=== PATIENT | female | born 1990 | race Caucasian/White ===

== ENCOUNTER 2020-12-12 02:26 | Emergency (ER) | payer BC, SELFPAY ==
--- NOTE | ~2020-12-12 | CT_ITS ---
EXAMINATION: CT abdomen pelvis wo con DATE: 12/12/2020 03:16 INDICATION: Right lower quadrant pain TECHNIQUE: Computed tomography (CT) of the abdomen and pelvis was performed without intravenous contr ast. The dose-length product (DLP) was 337.66 mGy-cm. Automated exposure control and iterative recons truction technique were employed. COMPARISON: None FINDINGS: The lung bases are clear. The heart size is normal. The liver, spleen, pancreas, gallbladde r, and adrenal glands are normal. The kidneys are unremarkable. No pathologically enlarged abdominal or pelvic lymph nodes are identified. There is no free intraperitoneal gas or evidence of bowel obstr uction. The appendix is normal. An IUD is present in expected position. IMPRESSION: 1. No CT correlate for the patient's symptoms. Reviewed, dictated and finalized at location A. PMENT SCHEDULER
[2020-12-12 02:28] VITALS: BP 131/70; PULSE 97; RESP 14; TEMP 36.1; O2SAT 100
--- NOTE | 2020-12-12 02:43 | ED.ABDPAIN ---
HPI - Abdominal Pain General Chief Complaint: Abdominal Pain Stated Complaint: abd pain Time Seen by Provider: 12/12/20 02:31 History of Present Illness HPI narrative: Severe lower abdominal pain for the past hour. Sharp. No radiation. She has had ovarian cysts, but says this feels different. No nausea, vomiting, diarrhea, constipation, fever, dysuria, hematuria. Related Data Allergies Allergy/AdvReac Type Severity Reaction Status Date / Time Contrast Media Allergy Intermediate Nausea and Uncoded 12/12/20 03:00 Vomiting BABY WIPES AdvReac Intermediate Rash Uncoded 12/12/20 03:00 Review of Systems Review of Systems: All systems reviewed & are unremarkable except as noted in HPI and below Constitutional: Constitutional: Denies fever(s) Cardiovascular: Cardiovascular: Denies chest pain Respiratory: Respiratory: Denies dyspnea Gastrointestinal: Gastrointestinal: Reports abdominal pain, Denies diarrhea, Denies nausea and Denies vomiting Genitourinary: Genitourinary: Denies hematuria and Denies dysuria Neurologic: Denies dizziness and Denies weakness [facility] Past Medical History Medical History (Updated 12/13/20 @ 03:40 by Paul Mujica MD) Ovarian cyst Family History Family History Father Diabetes mellitus Family history of schizophrenia Depression Cerebrovascular accident Family history of kidney disease Grandparent Family history of lung cancer Social History Social History Smoking status: Former smoker Second hand tobacco smoke exposure: No Smoking end date: 11/29/17 Alcohol intake: current Exam Const: General: healthy appearing, no acute distress and alert Orientation/consciousness: patient oriented x3 HENMT: Head: normal to inspection Resp: Effort & Inspection: normal respiratory effort Auscultation: clear to auscultation bilaterally, no rales, no rhonchi and no wheezes Cardio: Jugular venous distension: no JVD Rate: regular rate Rhythm: regular rhythm Heart sounds: no murmurs GI: Inspection: non-distended GI Palp: Yes Soft to palpation and Yes Tenderness to palpation present (GI) (suprapubic) Skin: General skin exam: normal color Neuro: General: patient oriented x3, moves all extremities and CN's II-XI intact bilaterally Speech: normal speech Gait exam (Neuro): Normal gait present Extrem: General: no edema Psych: Appearance: well kempt Affect: normal affect Course Vital Signs Vital signs: Vital Signs Temperature 36.1 C L 12/12/20 02:28 Pulse Rate 97 12/12/20 02:28 Respiratory Rate 14 12/12/20 02:28 Blood Pressure 131/70 12/12/20 02:28 Pulse Oximetry 100 12/12/20 02:28 Temperature 36.9 C 12/12/20 04:39 Pulse Rate 73 12/12/20 04:39 Respiratory Rate 16 12/12/20 04:39 Blood Pressure 118/89 12/12/20 04:39 Pulse Oximetry 100 12/12/20 04:39 MDM - Abdominal Pain Differential Diagnosis Differential diagnosis: Likely acute appendicitis, calculus of kidney, endometriosis, pancreatitis and other (ovarian cyst, UTI) Medical Records Attestation: I reviewed the patient's medical records. Lab Data Attestation: I reviewed the patient's lab results. Result diagrams: 12/12/20 02:51 12/12/20 02:51 Labs: Lab Results 12/12/20 12/12/20 12/12/20 Range/Units 02:51 02:51 02:51 WBC 11.7 H (4.5-10.0) K/mm3 RBC 4.52 (4.2-5.4) M/mm3 Hgb 14.5 (12.0-15.0) g/dL Hct 43.1 (37.0-47.0) % MCV 95.4 (80-100) fl MCH 32.1 (26-34) pg MCHC 33.6 (32-36) g/dl RDW 11.9 (11.5-14.5) % Plt Count 351 (150-375) k/mm3 MPV 9.4 (7.4-10.4) fl Immature Gran % (Auto) 0.4 (0-0.5) % Neut % (Auto) 61.5 (45.5-73.1) % Lymph % (Auto) 27.0 (18.3-44.2) % [place] % (Auto) 6.8 (2.6-8.5) % Eos % (Auto) 3.4 (0-4.4) % Baso % (Auto) 0.9 (0.2-1.2) % L
[2020-12-12] MEDS: fentaNYL CITRATE INJ (*CRX) 100 MCG/2 ML VIAL 50 MCG IV PUSH (02:58)
[2020-12-12 03:00] LABS: Basophils Absolute Auto 0.1 K/mm3 (0.0-0.1); Basophils Percent Auto 0.9 % (0.2-1.2); Eosinophils Absolute Auto 0.4 K/mm3 (0-0.3); Eosinophils Percent Auto 3.4 % (0-4.4); Hematocrit 43.1 % (37.0-47.0); Hemoglobin 14.5 g/dL (12.0-15.0); Immature Granulocyte Absolute 0.05 K/mm3 (0.00-0.031); Immature Granulocyte Percent A 0.4 % (0-0.5); Lymphocytes Absolute Auto 3.16 K/mm3 (0.9-3.2); Mean Corpuscular HGB Conc 33.6 g/dl (32-36); Mean Corpuscular Hemoglobin 32.1 pg (26-34); Mean Corpuscular Volume 95.4 fl (80-100); Mean Platelet Volume 9.4 fl (7.4-10.4); Monocytes Absolute Auto 0.8 K/mm3 (0.1-0.6); Monocytes Percent Auto 6.8 % (2.6-8.5); Neutrophils Absolute Auto 7.2 K/mm3 (1.3-6.7); Neutrophils Percent Auto 61.5 % (45.5-73.1); Platelet Count Result 351 k/mm3 (150-375); Red Blood Count 4.52 M/mm3 (4.2-5.4); Red Cell Distribution Width 11.9 % (11.5-14.5); White Blood Count 11.7 K/mm3 (4.5-10.0)
[2020-12-12 03:09] LABS: Add Urine Microscopic? YES; Amorphous Sediment Urine Few; Appearance Urine Cloudy (Clear); Bacteria Urine 3+ /hpf; Bilirubin Urine Negative (Negative); Blood Urine 1+ (Negative); Color Urine Yellow (Yellow); Glucose Urine UA Negative (Negative); Ketones Urine Negative (Negative); Leukocyte Esterase Ur 1+ LEU/UL (Negative); Mucus Urine Few /lpf; Nitrate Urine Positive (Negative); Protein Urine Negative (Negative); Specific Grav Ur 1.017 (1.001-1.035); Squamous Epithelial Cell Urine Moderate /hpf (Few); Urobilinogen Urine Negative mg/dL (<2.0)
[2020-12-12 03:19] LABS: Alanine Aminotransferase 19 U/L (4-35); Albumin Level 4.3 g/dL (3.5-5.1); Alkaline Phosphatase 70 U/L (38-126); Anion Gap 8 mmol/L (8-16); Aspartate Amino Transferase 25 U/L (14-36); Bilirubin,Total 0.4 mg/dL (0.2-1.3); Blood Urea Nitrogen 10 mg/dL (7-17); Calcium 8.9 mg/dL (8.4-10.2); Carbon Dioxide 28 mmol/L (22-30); Chloride 100 mmol/L (98-107); Estimated CRCL calculation 107 ml/min; Estimated Glomerular Filt Rate > 60; Glucose 101 mg/dL (65-105); Lipase 58 U/L (23-300); Potassium 3.8 mmol/L (3.4-5.0); Sodium 136 mmol/L (137-145)
[2020-12-12] MEDS: PHENAZOPYRIDINE HCL 100 MG TABLET 200 MG PO (04:00)
[2020-12-12] MEDS: KETOROLAC 30 MG/ML VIAL (*BKC) IV PUSH (04:01)
[2020-12-12 04:39] VITALS: BP 118/89; PULSE 73; RESP 16; TEMP 36.9; O2SAT 100
[2020-12-12] MEDS: ONDANSETRON INJ 4 MG/2 ML VIAL IV PUSH (04:39)
== END 2020-12-12 04:40 | disposition home or self-care (01) ==
PROVIDERS: Emergency Provider Emergency Medicine; PCP Family Medicine
DX: N39.0 Urinary tract infection, site not specified (principal); Z87.891 Personal history of nicotine dependence
CPT/HCPCS: 36415; 74176; 80053; 81001; 81025; 83690; 85025; 96365; 96375; 99284; A9270; J0696; J1885; J2405; J3010

== ENCOUNTER 2020-12-14 11:37 | Outpatient (CLI) | payer BC, SELFPAY ==
[2020-12-14 12:02] LABS: Hemoglobin 14.5 g/dL (12.0-15.0); Mean Corpuscular Hemoglobin 31.9 pg (26-34); Mean Corpuscular Volume 96.9 fl (80-100); Mean Platelet Volume 9.5 fl (7.4-10.4); Platelet Count Result 271 k/mm3 (150-375); Red Blood Count 4.54 M/mm3 (4.2-5.4); Red Cell Distribution Width 11.9 % (11.5-14.5); White Blood Count 10.7 K/mm3 (4.5-10.0)
== END 2020-12-14 11:38 | disposition home or self-care (01) ==
LOC: ANHLAB 11:38
PROVIDERS: PCP Family Medicine; Visit Provider Physician Assistant
DX: D72.829 Elevated white blood cell count, unspecified (principal)
CPT/HCPCS: 36415; 85027

== ENCOUNTER 2020-12-16 14:20 | Outpatient (CLI) | payer BC, SELFPAY ==
--- NOTE | ~2020-12-16 | XR_ITS ---
EXAMINATION: XR chest 2V DATE: 12/16/2020 14:47 INDICATION: Unspecified acute lower respiratory infection. TECHNIQUE: Frontal and lateral views of the chest were obtained. COMPARISON: CT abdomen and pelvis 12/12/2020 FINDINGS: The chest demonstrates clear lungs without pneumonia, pleural effusion, or pneumothorax. Th e heart size is normal. IMPRESSION: 1. No acute cardiopulmonary disease. Reviewed, dictated and finalized at location B. UP WORKER
== END 2020-12-16 14:21 ==
PROVIDERS: PCP Family Medicine; Visit Provider Physician Assistant
DX: J22 Unspecified acute lower respiratory infection (principal)
CPT/HCPCS: 71046

== ENCOUNTER 2020-12-18 09:10 | Outpatient (NON) | payer BC, SELFPAY ==
[2020-12-18 21:58] LABS: SARS-CoV-2 RNA PCR Negative
== END 2020-12-18 09:11 ==
LOC: ANHCOVIDDT 09:12
PROVIDERS: Family Provider Family Medicine; PCP Family Medicine; Visit Provider Physician Assistant
DX: Z20.822 Contact with and (suspected) exposure to COVID-19 (principal); R05 Cough
CPT/HCPCS: C9803; U0003; U0005

== ENCOUNTER 2021-05-12 02:02 | Emergency (ER) | payer BC, SELFPAY ==
--- NOTE | ~2021-05-12 | CT_ITS ---
EXAMINATION: CT abdomen pelvis wo con DATE: 05/12/2021 04:24 INDICATION: Generalized abdominal pain TECHNIQUE: Computed tomography (CT) of the abdomen and pelvis was performed with 100 cc Omnipaque 350 intravenous contrast. The dose-length product was 467.21 mGy-cm. Automated exposure control and iter ative reconstruction technique were employed. COMPARISON: 12/12/2020 FINDINGS: Lung bases are unremarkable. Heart size normal. No significant pleural or pericardial effus ion. There is an IUD in the uterus. The liver, spleen, pancreas, adrenal glands and kidneys are unremarkable. IUD present in expected pos ition. No renal/ureteral stones or hydronephrosis. Bladder is unremarkable. Nonobstructive bowel gas pattern . No free air or free fluid. IMPRESSION: 1. No acute abdominal abnormality. Reviewed, dictated and finalized at location A.
[2021-05-12 02:10] VITALS: BP 124/77; PULSE 104; RESP 18; TEMP 36.5; O2SAT 99
--- NOTE | 2021-05-12 02:23 | PC.NURSE ---
Pt presents to ED with complaints of wounds to ankles after being bitten by an unknown insect 3 days ago. Pt states wounds are draining a clear fluid and is causing swelling to her ankles. States she was prescribed prednisone and augmentin by pcp today but was not seen in the office. Pt state she took one dose of meds and shortly after she became nauseous. Pt denies emesis, fever, chills, chest pain and sob. Pt resting on cart alert and oriented x4 and in no obvious distress with stable vitals. Pt advised to press call button for assistance. Spouse at bedside.
--- NOTE | 2021-05-12 03:04 | ED.GENADULT ---
HPI - General Adult General Chief complaint: Unspecified Stated complaint: feels like stomach is burning Time Seen by Provider: 05/12/21 02:47 History of Present Illness HPI narrative: A 30-year-old female presents to emergency department with chief complaint of epigastric discomfort. Patient states that she was started on steroids and antibiotics by her primary care physician for some infected bug bites. Patient states that after she took the medication she started having burning in her epigastric region that is moved down into her stomach. Patient states that she has had no fevers no chills reports that her wound started itching as well afterwards. Related Data Allergies Allergy/AdvReac Type Severity Reaction Status Date / Time Contrast Media Allergy Intermediate Nausea and Uncoded 12/16/20 13:48 Vomiting BABY WIPES AdvReac Intermediate Rash Uncoded 12/16/20 13:48 Review of Systems Review of Systems: Narrative: A 10 system review of systems was completed on the patient and is negative except for what is stated in the HPI. Nursing and ancillary documentation was reviewed. PMFSH Past Medical History Medical History Ovarian cyst Family History Family History Father Diabetes mellitus Family history of schizophrenia Depression Cerebrovascular accident Family history of kidney disease Grandparent Family history of lung cancer Social History Social History Smoking status: Former smoker Second hand tobacco smoke exposure: No Smoking end date: 11/29/17 Alcohol intake: current Exam Narrative: Exam Narrative: GENERAL: Well-appearing, well-nourished, and in no acute distress. HEAD: Normocephalic, atraumatic. EYES: PERRLA and EOMI. ENT: Nares clear, no rhinorrhea or epistaxis. Mucous membranes moist. NECK: Supple. CHEST: Clear to auscultation. No respiratory distress. HEART: Regular rate and rhythm. No murmur heard. Normal peripheral pulses. ABDOMEN: Soft, mild tenderness to palpation in the epigastric region, nondistended, normal active bowel sounds. EXTREMITIES: Normal range of motion. No edema. Several small bug bites on the trunk and on the lower extremities SKIN: Warm, dry, no rash. NEURO: No focal deficits. Alert and oriented x3. PSYCH: Normal mood and affect. Course Vital Signs Vital signs: Vital Signs Temperature 36.5 C 05/12/21 02:10 Pulse Rate 104 H 05/12/21 02:10 Respiratory Rate 18 05/12/21 02:10 Blood Pressure 124/77 05/12/21 02:10 Pulse Oximetry 99 05/12/21 02:10 Temperature 36.5 C 05/12/21 04:43 Pulse Rate 85 05/12/21 04:43 Respiratory Rate 18 05/12/21 04:43 Blood Pressure 119/78 05/12/21 04:43 Pulse Oximetry 98 05/12/21 04:43 Medical Decision Making Vital Signs Vital Signs: Vital Signs Temperature 36.5 C 05/12/21 02:10 Pulse Rate 104 H 05/12/21 02:10 Respiratory Rate 18 05/12/21 02:10 Blood Pressure 124/77 05/12/21 02:10 Pulse Oximetry 99 05/12/21 02:10 Temperature 36.5 C 05/12/21 04:43 Pulse Rate 85 05/12/21 04:43 Respiratory Rate 18 05/12/21 04:43 Blood Pressure 119/78 05/12/21 04:43 Pulse Oximetry 98 05/12/21 04:43 Lab Data Result diagrams: 05/12/21 03:14 05/12/21 03:14 Labs: Lab Results 05/12/21 05/12/21 05/12/21 Range/Units 03:14 03:14 03:44 WBC 8.1 (4.5-10.0) K/mm3 RBC 4.38 (4.2-5.4) M/mm3 Hgb 13.8 (12.0-15.0) g/dL Hct 42.5 (37.0-47.0) % MCV 97.0 (80-100) fl MCH 31.5 (26-34) pg MCHC 32.5 (32-36) g/dl RDW 11.9 (11.5-14.5) % Plt Count 315 (150-375) k/mm3 MPV 9.6 (7.4-10.4) fl Immature Gran % (Auto) 0.4 (0-0.5) % Neut % (Auto) 83.0 H (45.5-73.1) % Lymph % (Auto) 12.2 L (18.3-44.2) % [place] % (Auto) 3.4
[2021-05-12] MEDS: BELLADONNA ALK/PHENOB ELIX 10 ML, MAG HYDROX/ALUMINUM HYD/SIMETH 30 ML, LIDOCAINE HCL 2... PO (03:06)
[2021-05-12 03:18] LABS: Basophils Percent Auto 0.5 % (0.2-1.2); Eosinophils Percent Auto 0.5 % (0-4.4); Hematocrit 42.5 % (37.0-47.0); Hemoglobin 13.8 g/dL (12.0-15.0); Immature Granulocyte Absolute 0.03 K/mm3 (0.00-0.031); Immature Granulocyte Percent A 0.4 % (0-0.5); Lymphocytes Absolute Auto 0.98 K/mm3 (0.9-3.2); Lymphocytes Percent Auto 12.2 % (18.3-44.2); Mean Corpuscular HGB Conc 32.5 g/dl (32-36); Mean Corpuscular Hemoglobin 31.5 pg (26-34); Mean Platelet Volume 9.6 fl (7.4-10.4); Monocytes Absolute Auto 0.3 K/mm3 (0.1-0.6); Monocytes Percent Auto 3.4 % (2.6-8.5); Neutrophils Absolute Auto 6.7 K/mm3 (1.3-6.7); Platelet Count Result 315 k/mm3 (150-375); Red Blood Count 4.38 M/mm3 (4.2-5.4); Red Cell Distribution Width 11.9 % (11.5-14.5); White Blood Count 8.1 K/mm3 (4.5-10.0)
--- NOTE | 2021-05-12 03:27 | PC.NURSE ---
Pt ambulated in [place] to restroom. Pt states she was beginning to feel better but her stomach is starting to burn again. Will notify EDMD.
[2021-05-12 03:28] LABS: Alanine Aminotransferase 61 U/L (4-35); Albumin Level 4.5 g/dL (3.5-5.1); Alkaline Phosphatase 77 U/L (38-126); Anion Gap 11 mmol/L (8-16); Aspartate Amino Transferase 38 U/L (14-36); Bilirubin,Total 0.4 mg/dL (0.2-1.3); Blood Urea Nitrogen 12 mg/dL (7-17); Calcium 9.5 mg/dL (8.4-10.2); Carbon Dioxide 24 mmol/L (22-30); Chloride 106 mmol/L (98-107); Estimated Glomerular Filt Rate > 60; Glucose 114 mg/dL (65-105); Lipase 46 U/L (23-300); Potassium 4.6 mmol/L (3.4-5.0); Sodium 141 mmol/L (137-145)
[2021-05-12 03:54] LABS: Add Urine Microscopic? YES; Appearance Urine Cloudy (Clear); Bacteria Urine Trace /hpf; Bilirubin Urine Negative (Negative); Blood Urine 1+ (Negative); Color Urine Yellow (Yellow); Glucose Urine UA Negative (Negative); Ketones Urine Negative (Negative); Leukocyte Esterase Ur 3+ LEU/UL (Negative); Mucus Urine Rare /lpf; Nitrate Urine Negative (Negative); Protein Urine Negative (Negative); Specific Grav Ur 1.013 (1.001-1.035); Squamous Epithelial Cell Urine Many /hpf (Few); Urobilinogen Urine Negative mg/dL (<2.0)
[2021-05-12] MEDS: FAMOTIDINE 20 MG/2 ML VIAL IV PUSH (04:07)
[2021-05-12] MEDS: PANTOPRAZOLE SODIUM IV 40 MG VIAL IV PUSH (04:07)
--- NOTE | 2021-05-12 04:16 | PC.NURSE ---
Pt to ct via cart.
--- NOTE | 2021-05-12 04:24 | PC.NURSE ---
pt returned from ct.
--- NOTE | 2021-05-12 04:26 | PC.NURSE ---
Pharmacy called again in regards to missing med. Message left.
--- NOTE | 2021-05-12 04:31 | PC.NURSE ---
Med received from pharmacy.
[2021-05-12] MEDS: SUCRALFATE 1 GM TABLET PO (04:32)
[2021-05-12 04:43] VITALS: BP 119/78; PULSE 85; RESP 18; TEMP 36.5; O2SAT 98
--- NOTE | 2021-05-12 04:46 | PC.NURSE ---
Pt states she feels much better since medication administration and also states that burning sensation in abdomen has pretty much subsided . Family member remains at bedside and pt remains alert and oriented x4 and in no obvious distress. Call button and personal items within reach and pt advised to press call button for assistance.
--- NOTE | 2021-05-12 04:52 | PC.NURSE ---
EDMD at bedside to update pt on poc. All questions and concerns addressed.
== END 2021-05-12 05:10 | disposition home or self-care (01) ==
PROVIDERS: Emergency Provider Emergency Medicine; PCP Family Medicine
DX: K29.00 Acute gastritis without bleeding (principal); Z87.891 Personal history of nicotine dependence
CPT/HCPCS: 36415; 74176; 80053; 81001; 81025; 83690; 85025; 96374; 96375; 99284; A9270; C9113

== ENCOUNTER 2021-10-28 16:12 | Emergency (ER) | payer BC, SELFPAY ==
[2021-10-28 16:20] VITALS: BP 117/81; PULSE 91; RESP 16; TEMP 37.4; O2SAT 99
--- NOTE | 2021-10-28 16:24 | ED.URI ---
HPI - URI/Sore Throat General Chief Complaint: Upper Respiratory Infection Stated Complaint: sore throat Time Seen by Provider: 10/28/21 17:00 Source: patient and RN notes reviewed Mode of arrival: ambulatory Limitations: no limitations History of Present Illness HPI Narrative: 31-year-old female presents concern for sore throat, sinus congestion, sinus drainage for 10 days. Reports she has been taking Claritin without relief. She reports body aches, low-grade temperature. She denies cough, shortness of breath. She has not been vaccinated for Covid or had a Covid infection. MD elicited complaint: sore throat and nasal congestion Related Data Home Medications Medication Instructions Recorded Confirmed loratadine [Claritin] 10 mg PO DAILY 10/28/21 10/28/21 Allergies Allergy/AdvReac Type Severity Reaction Status Date / Time Contrast Media Allergy Intermediate Nausea and Uncoded 10/28/21 16:49 Vomiting BABY WIPES AdvReac Intermediate Rash Uncoded 10/28/21 16:49 Review of Systems Review of Systems: CONSTITUTIONAL: Reports malaise, low-grade temp. Denies chills, sweats EYES: Denies visual changes, redness, or discharge. ENT: Reports rhinorrhea, congestion, sinus pain, itchy ears and sore throat. CARDIOVASCULAR: Denies chest pain, palpitations, or edema. RESPIRATORY: Denies cough. Denies dyspnea. GASTROINTESTINAL: Denies abdominal pain, nausea, vomiting, diarrhea SKIN: Denies rash or itching. MUSCULOSKELETAL: Reports myalgia. NEUROLOGIC: Denies headache. All systems reviewed & are unremarkable except as noted in HPI and below PMFSH Past Medical History Medical History Ovarian cyst Family History Family History Father Diabetes mellitus Family history of schizophrenia Depression Cerebrovascular accident Family history of kidney disease Grandparent Family history of lung cancer Social History Social History Smoking status: Former smoker Second hand tobacco smoke exposure: No Smoking end date: 11/29/17 Alcohol intake: current Comments At time of signature, agree with nursing past medical, surgical, social and family history. There is no relevant family history pertinent to the presenting complaint Exam Narrative: GENERAL: Well-appearing, well-nourished, and in no acute distress. HEAD: Normocephalic EYES: PERRLA, conjunctivae clear ENT: Nares clear, turbinates edematous and erythematous, frontal sinus tenderness. Mucous membranes moist. TM pearly roblero with dull light reflex bilaterally; no tragal tenderness. Oropharynx erythematous without lesions. Tonsils not enlarged and without exudate, no drooling, no hoarseness, no trismus, uvula midline. NECK: Supple. No lymphadenopathy CHEST: Clear to auscultation, breath sounds equal. No wheezing, rhonchi, rales, or stridor. No respiratory distress, speaks in full sentences. HEART: Regular rate and rhythm. No murmur heard. SKIN: Warm, dry, no rash. NEURO: Alert and oriented x3. PSYCH: Normal mood and affect Course Course Emergency Course: Patient is aware of diagnosis, understands and agrees to treatment plan. Anticipatory guidance given. Patient agrees to follow-up as directed and is aware of reasons to seek care at the emergency department. Portions of this record may have been created with voice recognition software Vital Signs Vital signs: Vital Signs Temperature 99.4 F 10/28/21 16:20 Pulse Rate 91 10/28/21 16:20 Respiratory Rate 16 10/28/21 16:20 Blood Pressure 117/81 10/28/21 16:20 Pulse Oximetry 99 10/28/21 16:20 Temperature 99.4 F 10/28/21 16:20 Pulse Rate 91 10/28/21 16:20 Respiratory Rate 16 10/28/21 16:20 Blood Pressure 117/81 10/28/21 16:20 Pulse Oximetry 99 10/28/21 16:20 Reviewed. MDM - URI/Sore Throat MDM N
== END 2021-10-28 17:20 | disposition home or self-care (01) ==
PROVIDERS: Emergency Provider Nurse Practitioner; PCP Family Medicine
DX: J01.90 Acute sinusitis, unspecified (principal); B96.89 Other specified bacterial agents as the cause of diseases classified elsewhere; Z87.891 Personal history of nicotine dependence
CPT/HCPCS: 87081; 87880; 99213; G0463

== ENCOUNTER → 2021-11-25 08:36 | Outpatient (CLI) | payer BC, SELFPAY ==
[2021-11-26 03:59] LABS: SARS-CoV-2 RNA PCR Positive
== END ==
PROVIDERS: PCP Family Medicine; Visit Provider Physician Assistant
DX: U07.1 COVID-19 (principal)
CPT/HCPCS: C9803; U0003; U0005

== ENCOUNTER 2022-09-29 12:44 | Emergency (ER) | payer BC, SELFPAY ==
[2022-09-29 13:00] VITALS: BP 133/98; PULSE 133; RESP 14; TEMP 37.2; O2SAT 98
[2022-09-29 14:01] LABS: SARS-CoV-2 RNA PCR Negative
--- NOTE | 2022-09-29 14:23 | ED.URI ---
HPI - URI/Sore Throat General Chief Complaint: Upper Respiratory Infection <KAROLINA Scott Last Filed: 09/29/22 15:16> Stated Complaint: cough and fever x 1 day <KAROLINA Scott Last Filed: 09/29/22 15:16> Time Seen by Provider: 09/29/22 13:13 <KAROLINA Scott Last Filed: 09/29/22 15:16> Source: patient <KAROLINA Scott Last Filed: 09/29/22 15:16> Mode of arrival: ambulatory <KAROLINA Scott Filed: 09/29/22 15:16> Limitations: no limitations <KAROLINA Scott Last Filed: 09/29/22 15:16> History of Present Illness HPI Narrative: Patient is a 32 y/o female who presents to the ED with URI symptoms. Patient reports she was exposed to a child with influenza at a birthday [employer] over the weekend. She developed several upper respiratory symptoms yesterday, including fever, up to 102-105 at home, cough, congestion, sore throat, muscle aches, nausea, vomiting. She last took ibuprofen this morning around 9:30 AM. Patient denies any abdominal pain, chest pain, difficulty breathing. <KAROLINA Scott Last Filed: 09/29/22 15:16> Related Data Home Medications: Home Medications Medication Instructions Recorded Confirmed loratadine 10 mg tablet (Claritin) 10 mg PO DAILY 10/28/21 05/18/22 <KAROLINA Scott Last Filed: 09/29/22 15:16> Allergies/Adverse Reactions: Allergies Allergy/AdvReac Type Severity Reaction Status Date / Time Contrast Media Allergy Intermediate Nausea and Uncoded 09/29/22 14:27 Vomiting BABY WIPES AdvReac Intermediate Rash Uncoded 09/29/22 14:27 <KAROLINA Scott Last Filed: 09/29/22 15:16> Review of Systems Review of Systems: CONSTITUTIONAL: Reports fever, chills, and sweats. ENT: Reports rhinorrhea, congestion, sore throat. CARDIOVASCULAR: Denies chest pain. RESPIRATORY: Reports cough. Denies dyspnea. GASTROINTESTINAL: Reports nausea, vomiting. Denies abdominal pain or diarrhea. GENITOURINARY: Denies dysuria or hematuria. MUSCULOSKELETAL: Reports myalgias. <Yamilex Veronica PA-C - Last Filed: 09/29/22 15:16> All systems reviewed & are unremarkable except as noted in HPI and below <Yamilex Veronica PA-C - Last Filed: 09/29/22 15:16> [facility] Past Medical History Medical History: Medical History Asthma Ovarian cyst <Yamilex Veronica PA-C - Last Filed: 09/29/22 15:16> Surgical History Surgical History: Surgical History No pertinent past surgical history <Yamilex Veronica PA-C - Last Filed: 09/29/22 15:16> Family History Family History: Family History (Reviewed 05/18/22 @ 11:12 by Sharon Price [facility]) Father Diabetes mellitus Family history of schizophrenia Depression Cerebrovascular accident Family history of kidney disease Grandparent Family history of lung cancer <Yamilex Veronica PA-C - Last Filed: 09/29/22 15:16> Social History Social History: Social History Smoking status: Former smoker Second hand tobacco smoke exposure: No Smoking end date: 11/29/17 Alcohol intake: current Substance use: never Substance use type: does not use Gender identity (if verbalized by the patient): Female Sexual Orientation (if Verbalized by the Patient): Straight or Heterosexual Spiritual care concerns: No Agree to blood products: Yes <Yamilex Veronica PA-C - Last Filed: 09/29/22 15:16> Exam Narrative: GENERAL: Mildly ill-appearing, obese, in no acute distress. HEAD: Normocephalic, atraumatic. NECK: Supple. No adenopathy, no masses. ENT: PERRLA, EOMI, conjunctivae clear bilaterally, no drainage from nose, posterior pharynx erythema, no tonsillar hypertrophy or exudate, uvu
[2022-09-29 14:24] LABS: Influenza A QL RT-PCR Positive (Negative); Influenza B QL RT-PCR Negative (Negative)
[2022-09-29] MEDS: SODIUM CHLORIDE 0.9% IV 1,000 ML 999 ML IV CONT (14:28)
[2022-09-29] MEDS: ONDANSETRON INJ 4 MG/2 ML VIAL IV PUSH (14:28)
[2022-09-29] MEDS: KETOROLAC 30 MG/ML VIAL (*BKC) IV PUSH (14:29)
[2022-09-29 15:34] VITALS: BP 135/70; PULSE 96; RESP 18; TEMP 36.8; O2SAT 97
== END 2022-09-29 15:35 | disposition home or self-care (01) ==
PROVIDERS: Emergency Provider Emergency Medicine; PCP Family Medicine
DX: J10.1 Influenza due to other identified influenza virus with other respiratory manifestations (principal); Z20.822 Contact with and (suspected) exposure to COVID-19; J45.909 Unspecified asthma, uncomplicated; Z87.891 Personal history of nicotine dependence
CPT/HCPCS: 87502; 96361; 96365; 96375; 99284; J0131; J1885; J2405; J7030; U0003; U0005

== ENCOUNTER 2022-10-27 12:29 | Emergency (ER) | payer BC, SELFPAY ==
[2022-10-27 12:54] VITALS: BP 122/91; PULSE 88; RESP 16; TEMP 36.9; O2SAT 98
--- NOTE | 2022-10-27 13:33 | ED.URI ---
HPI - URI/Sore Throat General Chief Complaint: Upper Respiratory Infection Stated Complaint: sore throat Time Seen by Provider: 10/27/22 13:33 History of Present Illness HPI Narrative: 32-year-old female presents for complaint sore throat over the last 3 days. She states pain is worse with swallowing, she has felt some nausea and difficulty breathing due to the pain. She is not coughing, she denies shortness of breath, wheezing, fevers or chills. She states she had influenza 4 weeks ago. Related Data Home Medications Medication Instructions Recorded Confirmed albuterol 90 mcg/actuation aerosol 180 mcg inhalation Q4-5H PRN sob 10/27/22 10/27/22 inhaler Allergies Allergy/AdvReac Type Severity Reaction Status Date / Time Contrast Media Allergy Intermediate Nausea and Uncoded 10/27/22 13:35 Vomiting BABY WIPES AdvReac Intermediate Rash Uncoded 10/27/22 13:35 Review of Systems Review of Systems: CONSTITUTIONAL: Denies body aches, fever, chills, or sweats. EYES: Denies visual changes, redness, or discharge. ENT: Denies rhinorrhea, congestion, or otalgia. CARDIOVASCULAR: Denies chest pain, palpitations, or edema. RESPIRATORY: Denies dyspnea. GASTROINTESTINAL: Denies abdominal pain, or diarrhea. SKIN: Denies rash, itching, or wounds. MUSCULOSKELETAL: Denies back pain, joint pain, or myalgia. NEUROLOGIC: Denies headache PMFSH Past Medical History Medical History Asthma Ovarian cyst Surgical History Surgical History No pertinent past surgical history Family History Family History Father Diabetes mellitus Family history of schizophrenia Depression Cerebrovascular accident Family history of kidney disease Grandparent Family history of lung cancer Social History Social History Smoking status: Former smoker Second hand tobacco smoke exposure: No Smoking end date: 11/29/17 Alcohol intake: current Substance use: never Substance use type: does not use Gender identity (if verbalized by the patient): Female Sexual Orientation (if Verbalized by the Patient): Straight or Heterosexual Spiritual care concerns: No Agree to blood products: Yes Exam Narrative: GENERAL: Ill-appearing, no acute distress. EYES: conjunctivae clear ENT: Mucous membranes moist. TMs pearly roblero with normal light reflex bilaterally; no tragal tenderness. Oropharynx erythematous with Tonsillar swelling 3+ without exudate. No drooling, no hoarseness, no trismus, uvula midline. No tripod positioning, hot potato voice, or soft palate swelling. NECK: Supple. No lymphadenopathy CHEST: Clear to auscultation, breath sounds equal. No respiratory distress, speaks in full sentences. HEART: Regular rate and rhythm. No murmur heard. SKIN: Warm, dry, no rash. NEURO: Alert and oriented x3. Course Course Emergency Course: Patient is aware of diagnosis, understands and agrees to treatment plan. Anticipatory guidance given. Patient agrees to follow-up as directed and is aware of reasons to seek care at the emergency department. Portions of this record may have been created with voice recognition software Level of Care: Express Care Visit Vital Signs Vital signs: Vital Signs Temperature 98.5 F 10/27/22 12:54 Pulse Rate 88 10/27/22 12:54 Respiratory Rate 16 10/27/22 12:54 Blood Pressure 122/91 H 10/27/22 12:54 Pulse Oximetry 98 10/27/22 12:54 Oxygen Delivery Room Air 10/27/22 12:54 Temperature 98.5 F 10/27/22 12:54 Pulse Rate 88 10/27/22 12:54 Respiratory Rate 16 10/27/22 12:54 Blood Pressure 122/91 H 10/27/22 12:54 Pulse Oximetry 98 10/27/22 12:54 Oxygen Delivery Room Air 10/27/22 12:54 MDM - URI/Sore Throat MDM Narrative Medical de
== END 2022-10-27 14:16 | disposition home or self-care (01) ==
PROVIDERS: Emergency Provider Nurse Practitioner Family
DX: J02.0 Streptococcal pharyngitis (principal); Z87.891 Personal history of nicotine dependence
CPT/HCPCS: 87880; 99213; G0463

== ENCOUNTER 2024-08-07 11:12 | Emergency (ER) | payer BC, SELFPAY ==
--- NOTE | ~2024-08-07 | XR_ITS ---
EXAMINATION: XR elbow LT min 3V DATE: 08/07/2024 11:30 INDICATION: Left elbow pain post fall TECHNIQUE: Anteroposterior, two oblique and lateral views of the left elbow were obtained. COMPARISON: None. FINDINGS: Alignment is normal. No fracture or joint effusion. Joint spaces are normal. Soft tissues are unremar kable. IMPRESSION: 1. Negative left elbow radiographs. Reviewed, dictated and finalized at location B.
--- NOTE | 2024-08-07 11:18 | ED.UPPEXIN ---
HPI - Extremity Injury (Upper) General Chief Complaint: Extremity Injury, Upper Stated Complaint: Injured Left Elbow Time Seen by Provider: 08/07/24 11:18 Source: patient Mode of arrival: ambulatory Limitations: no limitations History of Present Illness HPI narrative: Jenna is a 33-year-old female patient presenting to the clinic today with complaints a left elbow injury. She reports she fell on Wednesday and hit her left elbow on concrete. Has bruising noted to the elbow/distal humerus. Is having pain with full extension of the left elbow. States that the pain is radiating up into the humerus. Related Data Allergies Allergy/AdvReac Type Severity Reaction Status Date / Time Contrast Media Allergy Intermediate Nausea and Uncoded 08/07/24 11:22 Vomiting BABY WIPES AdvReac Intermediate Rash Uncoded 08/07/24 11:22 Review of Systems Review of Systems: Pertinent positives per HPI. Patient denies any fever, chills, rash, headache, visual changes, dizziness, cough, shortness of breath, chest pain, palpitations, nausea, vomiting, diarrhea, constipation, abdominal pain, or any urinary issues. PMFSH Past Medical History Medical History Asthma Ovarian cyst Surgical History Surgical History No pertinent past surgical history Family History Family History Father Diabetes mellitus Family history of schizophrenia Depression Cerebrovascular accident Family history of kidney disease Grandparent Family history of lung cancer Social History Social History Smoking status: Former smoker Second hand tobacco smoke exposure: No Smoking end date: 11/29/17 Alcohol intake: current Substance use: never Substance use type: does not use Living arrangements: with family Gender identity (if verbalized by the patient): Female Sexual Orientation (if Verbalized by the Patient): Straight or Heterosexual Spiritual care concerns: No Agree to blood products: Yes Comments At the time of my signature, I reviewed and agree with the nursing past medical, surgical, social, and family history. There is no relevant family history pertinent to the patient complaint. Exam Narrative: General: Well-developed, well nourished, in no apparent distress Head: Normocephalic, atraumatic. Cardio: Regular rate and rhythm, s1 and s2 normal, no murmur appreciated. Resp: Clear to auscultation bilaterally, no rhonchi, rales, wheezing or rubs. Musculoskeletal: No deformity, bruising seen to the lateral distal humerus and elbow, tender to palpation over the lateral and anterior elbow, limited range of motion-unable to fully extend the left elbow without radiation of pain into the distal humerus. Muscle strength strong and equal, peripheral pulse strong, no edema, no cyanosis, normal gait and station Course Course Emergency Course: Portions of this record may have been created with voice recognition software. Level of Care: Express Care Visit Vital Signs Vital signs: Vital Signs Temperature 36.4 C L 08/07/24 11:20 Pulse Rate 78 08/07/24 11:20 Respiratory Rate 16 08/07/24 11:20 Blood Pressure 122/93 H 08/07/24 11:20 Pulse Oximetry 99 08/07/24 11:20 Oxygen Delivery Room Air 08/07/24 11:20 Temperature 36.4 C L 08/07/24 11:20 Pulse Rate 78 08/07/24 11:20 Respiratory Rate 16 08/07/24 11:20 Blood Pressure 122/93 H 08/07/24 11:20 Pulse Oximetry 99 08/07/24 11:20 Oxygen Delivery Room Air 08/07/24 11:20 Vital signs reviewed MDM - Extremity Injury (Upper) MDM Narrative Medical decision making narrative: At the time of visit patient is resting comfortably on the exam table. Patient appears to be nontoxic. Diagnostics: X-ray of the left elbow is ne
[2024-08-07 11:20] VITALS: BP 122/93; PULSE 78; RESP 16; TEMP 36.4; O2SAT 99
== END 2024-08-07 11:57 | disposition home or self-care (01) ==
PROVIDERS: Emergency Provider Nurse Practitioner Family; PCP Family Medicine
DX: S53.402A Unspecified sprain of left elbow, initial encounter (principal); W19.XXXA Unspecified fall, initial encounter; S50.02XA Contusion of left elbow, initial encounter; J45.909 Unspecified asthma, uncomplicated; Z87.891 Personal history of nicotine dependence
CPT/HCPCS: 73080; 99213; A4565; G0463

== ENCOUNTER 2025-03-12 18:26 | Emergency (ER) | payer BC, SELFPAY ==
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
--- OUTSIDE RECORDS SUMMARY | 2025-03-12 18:28 | XMS_ITS | Clinical Summary ---
Author Organization [facility] Address [address] [place] [address] Care Team Providers Care Tapper Balance Wheel Screw Hole Name Role Phone Unavailable Primary Care Provider Unavailabl e Source Comments [facility],non-owned Affiliates and Associated Physician Practices is amultiple site organization consisting of ambulatory clinics and hospital sitesin [place], [place], [place] and [place]. This disclosure is being madepursuant to the Care Everywhere program and may not contain all information available regarding this patient. Last updated 18.[facility] Allergies No known active allergies Medications * Be aware that medications may not be up to date on this document. Alwaysverify current medications with the patient. norgestim-eth estrad triphasic ([id number] N) tabletIndication s:Nasal obstruction Take 1 Tab by mouth daily. Active albuterol (PROVENTIL; VENTOLIN) 90 MCG/ACT inhalerIndicatio ns:Nasal obstruction Inhale 2 Puffs by mouth every 6 hours as needed. Active Loratadine (CLARITIN) 10 MG CAPSIndications: Nasal obstruction Take 10 mg by mouth daily. Active diphenhydrAMINE (BENADRYL) 25 MG capsule Take 25 mg by mouth every 4 hours as needed. 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 Gender Identity Not on file Sexual Orientation Not on file Last Filed Vital Signs Vital Sign Reading Time Taken Comments Blood Pressure - - Pulse - - Temperature - - Respiratory Rate - - Oxygen Saturation - - Inhaled Oxygen Concentration - - Weight 48.6 kg (107 lb 2.3 oz) 10/28/2010 8:47 A M 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 Height 162.7 cm (5' 4.06 ) 10/28/2010 8:47 AM CS T Body Mass Index 18.36 10/28/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 Plan of Treatment Health Maintenance Due Date Last Done Comments HIV SCREENING 2007 HEPATITIS C SCREENING 08/05/2010 DTAP/TDAP/TD VACCINES (1 - Tdap) 2011 HEPATITIS B VACCINE (1 of 3 - 19+ 3-dose series) 2011 COVID-19 VACCINE ( - 2023-2 5 season) 2024 DEPRESSION SCREENING 11/29/2024 INFLUENZA VACCINE (Season Ended) 2025 ZOSTER VACCINE (1 of 2) 2042 HIB VACCINE Aged Out No longer eligi ble based on patient's age to complete this topic HPV VACCINE Aged Out No longer eligi ble based on patient's age to complete this topic MENINGOCOCCAL (Group B) VACC INE SHARED DECISION-MAKING Aged Out No longer eligibl e based on patient's age to complete this topic MENINGOCOCCAL GROUPS A/C/Y/W VACCINE Aged Out No longer eligible b ased on patient's age to complete this topic PNEUMOCOCCAL VACCINE Aged Out No long er eligible based on patient's age to complete this topic
[2025-03-12 18:45] VITALS: BP 136/98; PULSE 108; RESP 18; TEMP 36.6; O2SAT 98
--- NOTE | 2025-03-12 18:53 | ECG_ITS ---
Test Date: 2025-03-12 18:58:39 Measurements Intervals [place] Rate: 95 P: 47 MT: 167 QRS: 30 QRSD: 85 T: 35 QT: 333 QTc: 420 Interpretive Statements SINUS RHYTHM POSSIBLE LEFT ATRIAL ENLARGEMENT BORDERLINE R WAVE PROGRESSION, ANTERIOR LEADS CONSIDER INFERIOR INFARCT, AGE INDETERMINATE ABNORMAL ECG No previous ECG available for comparison Electronically Signed On 03-12-2025 19:57:54 CDT by Kaleb Mills D.O.
[2025-03-12 19:21] LABS: Basophils Absolute Auto 0.1 K/mm3 (0.0-0.1); Basophils Percent Auto 0.6 % (0.2-1.2); Eosinophils Absolute Auto 0.1 K/mm3 (0-0.3); Hematocrit 45.2 % (37.0-47.0); Hemoglobin 14.4 g/dL (12.0-15.0); Immature Granulocyte Absolute 0.06 K/mm3 (0.00-0.031); Immature Granulocyte Percent A 0.5 % (0-0.5); Lymphocytes Absolute Auto 1.62 K/mm3 (0.9-3.2); Lymphocytes Percent Auto 14.1 % (18.3-44.2); Mean Corpuscular HGB Conc 31.9 g/dl (32-36); Mean Corpuscular Hemoglobin 31.6 pg (26-34); Mean Corpuscular Volume 99.3 fl (80-100); Mean Platelet Volume 9.3 fl (7.4-10.4); Monocytes Absolute Auto 0.5 K/mm3 (0.1-0.6); Monocytes Percent Auto 4.1 % (2.6-8.5); Neutrophils Absolute Auto 9.2 K/mm3 (1.3-6.7); Neutrophils Percent Auto 79.7 % (45.5-73.1); Platelet Count Result 361 k/mm3 (150-375); Red Blood Count 4.55 M/mm3 (4.2-5.4); Red Cell Distribution Width 12.1 % (11.5-14.5); White Blood Count 11.5 K/mm3 (4.5-10.0)
[2025-03-12 19:31] LABS: Alanine Aminotransferase 24 U/L (6-35); Albumin Level 4.6 g/dL (3.5-5.1); Alkaline Phosphatase 80 U/L (38-126); Anion Gap 8 mmol/L (4-12); Aspartate Amino Transferase 31 U/L (14-36); Bilirubin,Total 0.5 mg/dL (0.2-1.3); Blood Urea Nitrogen 11 mg/dL (7-17); Calcium 9.1 mg/dL (8.4-10.2); Carbon Dioxide 26 mmol/L (22-30); Chloride 104 mmol/L (98-107); Estimated CRCL calculation 98 ml/min; Estimated Glomerular Filt Rate > 60; Glucose 109 mg/dL (65-110); Lipase 54 U/L (23-300); Potassium 3.6 mmol/L (3.4-5.0); Sodium 138 mmol/L (137-145)
[2025-03-12 19:37] LABS: Prothrombin Time 13.3 Seconds (11.1-14.7)
[2025-03-12 19:38] LABS: Partial Thromboplastin Time 30.7 Seconds (22.3-36.8)
[2025-03-12 19:44] LABS: Troponin I < 0.012 ng/mL (0.000-0.034)
[2025-03-12 19:49] VITALS: BP 133/93; PULSE 96; RESP 16; O2SAT 99
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
--- OUTSIDE RECORDS SUMMARY | 2025-03-12 20:00 | XMS_ITS | Clinical Summary ---
Author Organization [facility] Address [address] 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 This disclosure is being madepursuant to the Care Everywhere program and may not contain all information available regarding this patient. Last updated 18.[facility] Allergies No known active allergies Medications * Be aware that medications may not be up to date on this document. Alwaysverify current medications with the patient. 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
[2025-03-12 21:04] LABS: BEDSIDEPREGUCG Negative (Negative)
[2025-03-12] MEDS: ACETAMINOPHEN 500 MG TABLET 1000 MG PO (22:04)
[2025-03-12 22:57] VITALS: BP 120/99; PULSE 90; RESP 17; O2SAT 99
== END 2025-03-12 23:00 | disposition home or self-care (01) ==
PROVIDERS: Emergency Medicine; Emergency Provider Student in an Organized Health Care Education/Training Program; PCP Family Medicine
DX: S20.219A Contusion of unspecified front wall of thorax, initial encounter (principal); D72.829 Elevated white blood cell count, unspecified; H93.12 Tinnitus, left ear; J45.909 Unspecified asthma, uncomplicated; Z87.891 Personal history of nicotine dependence; R94.31 Abnormal electrocardiogram [ECG] [EKG]; V43.52XA Car driver injured in collision with other type car in traffic accident, initial encounter; W22.11XA Striking against or struck by driver side automobile airbag, initial encounter
CPT/HCPCS: 36415; 70450; 71046; 71250; 72125; 74176; 80053; 81025; 83690; 84484; 85025; 85610; 85730; 93005; 99284; A9270